=== PATIENT | female | born 1965 | race Caucasian/White ===

== ENCOUNTER → 2024-01-10 14:34 | Outpatient (REF) | payer OTHER, SELFPAY | LOC: WDC 14:34 | PROVIDERS: ATTENDING PHYSICIAN Family Medicine | DX: Z12.31 Encounter for screening mammogram for malignant neoplasm of breast (principal) | CPT/HCPCS: 77063; 77067 ==

== ENCOUNTER → 2024-01-29 09:37 | Outpatient (REF) | payer OTHER, SELFPAY | LOC: WDC 09:37 | PROVIDERS: ATTENDING PHYSICIAN Family Medicine; FAMILY PHYSICIAN Family Medicine | DX: R92.8 Other abnormal and inconclusive findings on diagnostic imaging of breast (principal) | CPT/HCPCS: 76642 ==

== ENCOUNTER → 2024-02-12 11:41 | Outpatient (REF) | payer OTHER, SELFPAY | LOC: RAD 11:41 | PROVIDERS: ATTENDING PHYSICIAN Nurse Practitioner Adult Health | DX: M79.672 Pain in left foot (principal); M25.512 Pain in left shoulder; Z00.00 Encounter for general adult medical examination without abnormal findings | CPT/HCPCS: 73030; 73630 ==

== ENCOUNTER → 2024-02-13 10:14 | Outpatient (REF) | payer OTHER, SELFPAY | LOC: RAD 10:14 | PROVIDERS: ATTENDING PHYSICIAN Nurse Practitioner Adult Health; FAMILY PHYSICIAN Family Medicine | DX: Z00.00 Encounter for general adult medical examination without abnormal findings (principal); Z78.0 Asymptomatic menopausal state | CPT/HCPCS: 77080 ==

== ENCOUNTER 2024-03-18 06:35 | Outpatient (RCR) | payer OTHER, SELFPAY | END 2024-03-18 23:59 | disposition home or self-care (01) | LOC: RPT 06:35 | PROVIDERS: ATTENDING PHYSICIAN Family Medicine | DX: M25.512 Pain in left shoulder (principal); Z73.6 Limitation of activities due to disability | CPT/HCPCS: 97010; 97110; 97140; 97162 ==

== ENCOUNTER 2024-03-26 06:49 | Outpatient (RCR) | payer OTHER, SELFPAY | END 2024-03-26 23:59 | disposition home or self-care (01) | LOC: RPT 06:49 | PROVIDERS: ATTENDING PHYSICIAN Family Medicine | DX: M25.512 Pain in left shoulder (principal); Z73.6 Limitation of activities due to disability | CPT/HCPCS: 97010; 97110; 97140 ==

== ENCOUNTER → 2024-04-19 10:28 | Outpatient (REF) | payer OTHER, SELFPAY | LOC: MRI 3T 10:28 | PROVIDERS: ATTENDING PHYSICIAN Nurse Practitioner Adult Health; FAMILY PHYSICIAN Family Medicine | DX: M25.512 Pain in left shoulder (principal) | CPT/HCPCS: 73221 ==

== ENCOUNTER 2024-05-23 07:03 | Outpatient (RCR) | payer OTHER, SELFPAY | END 2024-05-23 23:59 | disposition home or self-care (01) | LOC: RPT 07:03 | PROVIDERS: ATTENDING PHYSICIAN Specialist; FAMILY PHYSICIAN Family Medicine | DX: M75.112 Incomplete rotator cuff tear or rupture of left shoulder, not specified as traumatic (principal); S43.432D Superior glenoid labrum lesion of left shoulder, subsequent encounter; M75.02 Adhesive capsulitis of left shoulder; Z73.6 Limitation of activities due to disability | CPT/HCPCS: 97010; 97110; 97140; 97162 ==

== ENCOUNTER 2024-06-13 06:52 | Outpatient (RCR) | payer OTHER, SELFPAY | END 2024-06-13 09:28 | disposition home or self-care (01) | LOC: RPT 06:52 | PROVIDERS: ATTENDING PHYSICIAN Specialist; FAMILY PHYSICIAN Family Medicine | DX: M75.112 Incomplete rotator cuff tear or rupture of left shoulder, not specified as traumatic (principal); S43.432D Superior glenoid labrum lesion of left shoulder, subsequent encounter; M75.02 Adhesive capsulitis of left shoulder; Z73.6 Limitation of activities due to disability | CPT/HCPCS: 97010; 97110; 97140 ==

== ENCOUNTER → 2024-08-29 14:04 | Outpatient (REF) | payer OTHER, SELFPAY | LOC: WDC 14:04 | PROVIDERS: ATTENDING PHYSICIAN Family Medicine | DX: R92.8 Other abnormal and inconclusive findings on diagnostic imaging of breast (principal) | CPT/HCPCS: 76642; 77061; 77065 ==

== ENCOUNTER 2024-11-19 07:05 | Outpatient (RCR) | payer OTHER, SELFPAY | END 2024-11-19 23:59 | disposition home or self-care (01) | LOC: RPT 07:05 | PROVIDERS: ATTENDING PHYSICIAN Physician Assistant Surgical | DX: Z47.89 Encounter for other orthopedic aftercare (principal); M75.112 Incomplete rotator cuff tear or rupture of left shoulder, not specified as traumatic; S43.432D Superior glenoid labrum lesion of left shoulder, subsequent encounter; M75.02 Adhesive capsulitis of left shoulder; Z73.6 Limitation of activities due to disability; M62.81 Muscle weakness (generalized) | CPT/HCPCS: 97110; 97162 ==

== ENCOUNTER 2024-12-17 10:13 | Outpatient (RCR) | payer OTHER, SELFPAY | END 2024-12-17 23:59 | disposition home or self-care (01) | LOC: RPT 10:13 | PROVIDERS: ATTENDING PHYSICIAN Physician Assistant Surgical | DX: Z47.89 Encounter for other orthopedic aftercare (principal); M75.112 Incomplete rotator cuff tear or rupture of left shoulder, not specified as traumatic; S43.432D Superior glenoid labrum lesion of left shoulder, subsequent encounter; M75.02 Adhesive capsulitis of left shoulder; Z73.6 Limitation of activities due to disability; M62.81 Muscle weakness (generalized) | CPT/HCPCS: 97010; 97110; 97140 ==

== ENCOUNTER 2024-12-31 14:17 | Outpatient (RCR) | payer OTHER, SELFPAY | END 2025-01-01 13:49 | disposition home or self-care (01) | LOC: RPT 14:17 | PROVIDERS: ATTENDING PHYSICIAN Physician Assistant Surgical | DX: Z47.89 Encounter for other orthopedic aftercare (principal); M75.112 Incomplete rotator cuff tear or rupture of left shoulder, not specified as traumatic; S43.432D Superior glenoid labrum lesion of left shoulder, subsequent encounter; M75.02 Adhesive capsulitis of left shoulder; Z73.6 Limitation of activities due to disability; M62.81 Muscle weakness (generalized) | CPT/HCPCS: 97010; 97110; 97140 ==

== ENCOUNTER → 2025-02-24 07:06 | Outpatient (REF) | payer OTHER, SELFPAY | LOC: WDC 07:06 | PROVIDERS: ATTENDING PHYSICIAN Family Medicine | DX: Z12.31 Encounter for screening mammogram for malignant neoplasm of breast (principal); R92.8 Other abnormal and inconclusive findings on diagnostic imaging of breast | CPT/HCPCS: 76642; 77063; 77067 ==